=== PATIENT | female | born 1960 | race Caucasian/White ===

== ENCOUNTER 2016-06-09 21:13 | Emergency (ER) | payer BC ==
[2016-06-09 21:21] VITALS: BP 192/90; BMI 49.4
--- NOTE | 2016-06-09 21:41 | DR.GENAD ---
HPI - PCP Primary Care Physician: NFD - Complaint/Symptoms Chief Complaint Doctors Comments: Patient states that on yesterday she had a high fever, chills for short perior of time. Today noticed a red area on lower extremity. Denies trauma or any known insect bite. Chief Complaint:: HIGH FEVER LEG RED LT - Source History Provided: Patient - Mode of Arrival Mode of Arrival: Ambulatory - Timing Onset of Chief Complaint: 06/08/16 PMH - PMH Past Medical History: No Past Surgical History: Yes Surgical History: [employer] Surgery, Hysterectomy Past Surgical History Comment: TUBALIGATION - Family History History of Family Medical Conditions: Yes Family Medical History: Diabetes Mellitus, Cancer, Hypertension - Social History Does any household member use tobacco: No Alcohol Use: None Do you use any recreational Drugs:: No Lives With: Family Lives Where: Home - infectious screening In the last 2 months have you had wt loss of >10#?: NO Have you had fever, night sweats or hemotysis?: No Have you traveled outside the country in the last 6 months?: No Isolation: Standard ROS - Review of Systems Constitutional: No Symptoms Reported Eyes: No Symptoms Reported ENTM: No Symptoms Reported Respiratoy: No Symptoms Reported Cardiovascular: No Symptoms Reported Gastrointestinal/Abdominal: No Symptoms Reported Genitourinary: No Symptoms Reported Neurological: No Symptoms Reported Musculoskeletal: No Symptoms Reported, Leg (rash) Integumentary: No Symptoms Reported Hematologic/Lymphatic: No Symptoms Reported Endocrine: No Symptoms Reported Psychiatric: No Symptoms Reported All Other Systems: Reviewed and Negative PE - Vital Signs Vitals: Temperature 103.1 F Pulse Rate 113 Respiratory Rate 18 Blood Pressure 192/90 O2 Sat by Pulse Oximetry 97 - General General Appearance: In No Apparent Distress - Head Head Exam: Normal Inspection, Atraumatic - Eyes Eye exam: Normal Appearance, PERRL, EOMI - ENT ENT Exam: Normal Exam External Ear Exam: Normal External Inspection TM/Canal Exam: Bilateral Normal Nose Exam: Normal Nose Exam Mouth Exam: Normal Inspection Throat Exam: Normal Inspection - Neck Neck Exam: Normal Inspection - Chest Chest Inspection: Normal Inspection - Respiratory Respiratory Exam: Normal Lung Sounds Bilat Respiratory Exam: Bilateral Clear to Auscultation - Cardiovascular Cardiovascular Exam: Regular Rate - Abdominal Exam Abdominal Exam: Normal Inspection Abdominal Tenderness: negative: RUQ, RLQ, LUQ, LLQ, Epigastrium, Suprapubic, Diffuse, Mild, Moderate, Severe, Other - Extremities Extremities Exam: Normal Capillary Refill, Other (Anterior distal tibia area of cellulitis). negative: Joint Swelling, Calf Tenderness - Back Back Exam: Normal Inspection - Neurologic Neurological Exam: Alert, Oriented X3, CN II-XII Intact - Psychiatric Psychiatric Exam: Normal Affect, Normal Mood - Skin Skin Exam: Warm, Dry, Intact Course - Treatment Treatment: ceftriaxone 1gm IM ROR - Labs Reviewed Result Diagrams: 06/09/16 21:57 06/09/16 21:57 Laboratory: WBC 11.3 X10^3/uL (3.6-10.0) H 06/09/16 21:57 RBC 4.53 X10^6/uL (3.5-5.4) 06/09/16 21:57 Hgb 14.9 g/dL (12.0-16.0) 06/09/16 21:57 Hct 43.3 % (36.0-47.0) 06/09/16 21:57 MCV 95.7 fL (80.0-100.0) 06/09/16 21:57 MCH 32.9 pg (27.0-34.0) 06/09/16 21:57 MCHC 34.4 g/dL (33.0-35.0) 06/09/16 21:57 RDW 13.1 % (11.6-16.5) 06/09/16 21:57 Plt Count 82 X10^3/uL (150.0-450.0) L 06/09/16 21:57 Plt Count Comment Decreased (ADEQUATE) A 06/09/16 21:57 MPV 9.9 fL (7.4-11.0) 06/09/16 21:57 Neut % 93.1 % (42.0-75.0) H 06/09/16 21:57 Lymph % 2.5 % (21.0-51.0) L 06/09/16 21:57 Ward % 3.4 % (0.0-13.0) 06/09/16 21:57 Eos % 0.4 % (0.9-2.9) L 06/09/16 21:57 Baso % 0.6 % (0.2-1.0) 06/09/16 21:57 Neut # 10.5 x10^3/uL (2.2-4.8) H 06/09/16 21:57 Lymph # 0.3 X10^3/uL (1.3-2.9) L 06/09/16 21:57 Ward # 0.4 x10^3/uL (0.3-0.8) 06/09/16 21:57 Eos # 0.0 x10^3/uL (0.0-0.2) 06/09/16 21:57 Baso # 0.1 X10^3/uL (0.0-0.1) 06/09/16 21:57 Absolute Nucleated RBC 0.1 /100WBC 06/09/16 21:57 Total Counted 100 06/09/16 21:57 Neutrophils % (Manual) 81 % (39-76) H 06/09/16 21:57 Band Neutrophils % 13 % (0-10) H 06/09/16 21:57 Lymphocytes % (Manual) 3 % (13-43) L 06/09/16 21:57 Monocytes % (Manual) 2 % (4-9) L 06/09/16 21:57 Eosinophils % (Manual) 1 % (0-6) 06/09/16 21:57 Plt Morphology Comment Normal (NORMAL) 06/09/16 21:57 RBC Morphology Normal (NORMAL) 06/09/16 21:57 Sodium 142 mmol/L (136-145) 06/09/16 21:57 Corrected Sodium 144 mmol/L (136-145) 06/09/16 21:57 Potassium 3.3 mmol/L (3.5-5.1) L 06/09/16 21:57 Chloride 107 mmol/L (98-107) 06/09/16 21:57 Carbon Dioxide 22.8 mmol/L (21-32) 06/09/16 21:57 BUN 14 mg/dL (7-18) 06/09/16 21:57 Creatinine 0.85 mg/dL (0.55-1.02) 06/09/16 21:57 Est GFR (MDRD) Af Amer > 60 (>60) 06/09/16 21:57 Est GFR (MDRD) Non-Af > 60 (>60) 06/09/16 21:57 Glucose 175 mg/dL (65-99) H 06/09/16 21:57 Calcium 8.4 mg/dL (8.5-10.1) L 06/09/16 21:57 C-Reactive Protein 59.20 mg/L (0-3.0) H 06/09/16 21:57 - XRAY XRAY Interpreted by: Radiologist (Chest: no acute cardiopulmonary process) - Diagnosis Discharge Problem: Left leg cellulitis - Discharge Plan Condition: Stable - Follow ups/Referrals Follow ups/Referrals: NFD,None [Primary Care Provider] - 3 days - Instructions
[2016-06-09] MEDS ORDERED: XYLOCAINE 1 % (PLAIN) ONE (21:42)
[2016-06-09] MEDS ORDERED: ROCEPHIN VIAL 1 GM ONE (21:42)
[2016-06-09] MEDS ORDERED: ROCEPHIN VIAL 1 GM IM ONE (21:43)
[2016-06-09] MEDS ORDERED: MORPHINE SULFATE INJ 4 MG IVP ONE (21:56)
[2016-06-09 22:23] LABS: BASOPHILS # (AUTO) 0.1 X10^3/uL (0.0-0.1); BASOPHILS % (AUTO) 0.6 % (0.2-1.0); EOSINOPHILS % (AUTO) 0.4 % (0.9-2.9); HEMATOCRIT 43.3 % (36.0-47.0); HEMOGLOBIN 14.9 g/dL (12.0-16.0); LYMPHOCYTES # (AUTO) 0.3 X10^3/uL (1.3-2.9); LYMPHOCYTES % (AUTO) 2.5 % (21.0-51.0); MEAN CORPUSCULAR HEMOGLOBIN 32.9 pg (27.0-34.0); MEAN CORPUSCULAR HGB CONC 34.4 g/dL (33.0-35.0); MEAN CORPUSCULAR VOLUME 95.7 fL (80.0-100.0); MEAN PLATELET VOLUME 9.9 fL (7.4-11.0); MONOCYTES # (AUTO) 0.4 x10^3/uL (0.3-0.8); MONOCYTES % (AUTO) 3.4 % (0.0-13.0); NEUTROPHILS # (AUTO) 10.5 x10^3/uL (2.2-4.8); NEUTROPHILS % (AUTO) 93.1 % (42.0-75.0); PLATELET COUNT 82 X10^3/uL (150.0-450.0); RED BLOOD COUNT 4.53 X10^6/uL (3.5-5.4); RED CELL DISTRIBUTION WIDTH 13.1 % (11.6-16.5); WHITE BLOOD COUNT 11.3 X10^3/uL (3.6-10.0)
[2016-06-09 22:28] LABS: BLOOD UREA NITROGEN 14 mg/dL (7-18); CALCIUM 8.4 mg/dL (8.5-10.1); CARBON DIOXIDE 22.8 mmol/L (21-32); CHLORIDE 107 mmol/L (98-107); COR NA(FOR HYPERGLY) 144 mmol/L (136-145); CREATININE 0.85 mg/dL (0.55-1.02); GLUCOSE 175 mg/dL (65-99); SODIUM 142 mmol/L (136-145); eGFR BLACK RACES > 60 (>60); eGFR NON BLACK RACES > 60 (>60)
[2016-06-09] MEDS ORDERED: K-DUR TAB 20 MEQ PO ONE ×2 (22:34→22:37)
[2016-06-09 22:36] LABS: BAND NEUTROPHILS % 13 % (0-10); PLATELET MORPHOLOGY COMMENT NORMAL (NORMAL)
[2016-06-09] MEDS ORDERED: MORPHINE SULFATE INJ 4 MG ONE (22:37)
--- NOTE | 2016-06-09 23:04 | RAD ---
EXAM: Chest X-ray INDICATION: Fever COMPARISION: No prior TECHNIQUE: PA and Lat, 2 view FINDINGS: The lungs are clear and the lung volumes are within normal limits. No pleural effusion or pneumothor ax. The cardiac silhouette and mediastinum are normal. The regional skeleton is intact. IMPRESSION: No acute abnormality identified Reported By:
== END 2016-06-09 23:29 | disposition home or self-care (01) ==
LOC: ER 21:26
DX: L03.116 Cellulitis of left lower limb (principal)
CPT/HCPCS: 36415; 71020; 80048; 85025; 86140; 87502; 87503; 96372; 99283; J0696; J2001; J2270